=== PATIENT | female | born 1970 | race Caucasian/White ===

== ENCOUNTER 2016-05-20 23:24 | Emergency (ER) | payer SELFPAY ==
[2016-05-20] MEDS ORDERED: Mag-Al Plus 1200 MG/1200 MG/120 MG/30 ML UDCUP ONE (23:34)
[2016-05-20] MEDS ORDERED: Lidocaine Viscous Sol 2% 15 ml UD Cup ONE (23:34)
[2016-05-20] MEDS ORDERED: Ondansetron ODT 4 MG TAB ONE (23:34)
== END 2016-05-21 00:21 | disposition home or self-care (01) ==
LOC: NAV ERS 23:24
DX: R10.13 Epigastric pain (principal); F31.9 Bipolar disorder, unspecified; F17.210 Nicotine dependence, cigarettes, uncomplicated
CPT/HCPCS: 99283; Q0162

== ENCOUNTER 2017-03-14 19:06 | Emergency (ER) | payer SELFPAY ==
[2017-03-14 19:31] LABS: Bilirubin Negative (Negative); Blood, Urine Negative (Negative); Glucose, Urine (Dipstick) Negative (Negative); Leukocyte Negative (Negative); Nitrite Negative (Negative); Protein, Urine (Dipstick) Negative (Neg-Trace); Urobilinogen 0.2 mg/dL (0.2-1.0); pH, Urine 5.5 (5.0-9.0)
[2017-03-14 19:35] LABS: Clarity SL HAZY (Clear); Specific Gravity, Urine 1.032 (1.002-1.036)
[2017-03-14] MEDS ORDERED: Sodium Chloride 0.9% 1,000 ML ONE (20:04)
[2017-03-14] MEDS ORDERED: Pantoprazole 40 MG VIAL ONE (20:05)
[2017-03-14] MEDS ORDERED: Sodium Chloride 0.9% 100 ML ONE (20:05)
[2017-03-14] MEDS ORDERED: Lidocaine Viscous Sol 2% 15 ml UD Cup ONE (20:05)
[2017-03-14] MEDS ORDERED: Ondansetron HCl/PF 4 MG/2 ML Vial ONE (20:05)
[2017-03-14] MEDS ORDERED: Mag-Al Plus 1200 MG/1200 MG/120 MG/30 ML UDCUP ONE (20:05)
[2017-03-14 20:21] LABS: #Basophils 0.1 thou/uL (0.0-0.2); #Eosinphils 0.1 thou/uL (0.0-0.7); #Lymphocytes 2.9 thou/uL (1.20-3.40); #Monocytes 1.4 thou/uL (0.11-0.59); #Neutrophils 11.1 thou/uL (1.40-6.50); %Basophils 0.5 % (0.0-1.0); %Eosinophils 0.8 % (0.0-10.0); %Lymphocytes 18.6 % (21.0-51.0); %Monocytes 8.8 % (0.0-10.0); %Neutrophils 71.3 % (42.0-75.0); ALT (SGPT) 75 U/L (8-55); AST (SGOT) 45 U/L (5-34); Albumin 4.1 g/dL (3.5-5.0); Alkaline Phosphatase 77 U/L (40-150); Anion Gap 16 mmol/L (10-20); BUN (Urea Nitrogen) 16 mg/dL (7.0-18.7); Bilirubin, Total 0.3 mg/dL (0.2-1.2); CK (CPK) 73 U/L (29-168); Calc. Creatinine Clearance 0 mL/min (70-130); Carbon Dioxide 21 mmol/L (22-29); Chloride 103 mmol/L (98-107); Estimated GFR-MDRD 72; Globulin 3.7 g/dL (2.4-3.5); Glucose 97 mg/dL (70-105); Hemoglobin 13.1 g/dL (12.0-16.0); Lipase 20 U/L (8-78); Mean Corpuscular Volume 77.4 fl (81.0-99.0); Mean Platelet Volume 6.9 fL (7.4-10.4); Platelet Count 454 thou/uL (130-400); Potassium 3.8 mmol/L (3.5-5.1); Protein, Total 7.8 g/dL (6.0-8.3); Red Blood Cell (RBC) Count 5.47 mill/uL (4.20-5.40); Sodium 136 mmol/L (136-145); White Blood Cell (WBC) Count 15.6 thou/uL (4.8-10.8)
[2017-03-14 20:23] LABS: CKMB 1.9 ng/mL (0-6.6); Troponin I Less than 0.010 ng/mL (< 0.028)
--- NOTE | 2017-03-14 20:59 | RAD ---
ABDOMEN TWO VIEWS CHEST ONE VIEW 03/14/17 HISTORY: 47-year-old female with abdominal pain and nausea since this morning. FINDINGS: No significant acute process in the chest. No free intraperitoneal air. Gas and fecal material scattered throughout the colon. No evidence for l arge or small bowel obstruction or free air. No overt calculus. IMPRESSION: Unremarkable abdomen two views and chest one view. No acute process. POS: [facility]
[2017-03-14] MEDS ORDERED: Bisacodyl 5 MG TAB ONE (21:38)
== END 2017-03-14 21:45 | disposition home or self-care (01) ==
LOC: NAV ERS 19:06
DX: K59.00 Constipation, unspecified (principal); F31.9 Bipolar disorder, unspecified; F17.210 Nicotine dependence, cigarettes, uncomplicated
CPT/HCPCS: 74022; 80053; 81003; 82150; 82550; 82553; 83690; 84484; 85025; 96361; 96365; 96375; C9113; J2405; J7050